=== PATIENT | male | born 1955 | race Caucasian/White ===

== ENCOUNTER → 2021-07-19 | Outpatient (CLI) | payer SELFPAY ==
[2021-07-19 13:02] LABS: Microalbumin, Urine Quant. 6.93 mg/L (0.000-20.000); Protein, Urine Quantitative 11.1 mg/dL (0.0-11.9)
== END ==
LOC: LAB SHORT 10:57
PROVIDERS: Internal Medicine Nephrology
DX: N18.30 Chronic kidney disease, stage 3 unspecified (principal); D63.1 Anemia in chronic kidney disease; N25.81 Secondary hyperparathyroidism of renal origin; E55.9 Vitamin D deficiency, unspecified; E78.00 Pure hypercholesterolemia, unspecified; R76.9 Abnormal immunological finding in serum, unspecified; R94.5 Abnormal results of liver function studies; R94.6 Abnormal results of thyroid function studies; D51.8 Other vitamin B12 deficiency anemias
CPT/HCPCS: 81050; 82043; 82570; 84156

== ENCOUNTER → 2022-11-17 | Outpatient (CLI) | payer MEDICARE | END | disposition home or self-care (01) | LOC: LAB SHORT 09:40 → LAB 09:40 | DX: M1A.09X1 Idiopathic chronic gout, multiple sites, with tophus (tophi) (principal) | CPT/HCPCS: 84550 ==

== ENCOUNTER → 2023-01-26 | Outpatient (CLI) | payer MEDICARE | LOC: LAB SHORT 10:45 → LAB 10:45 | DX: M1A.09X1 Idiopathic chronic gout, multiple sites, with tophus (tophi) (principal) | CPT/HCPCS: 84550 ==

== ENCOUNTER 2023-02-27 10:37 | Emergency (ER) | payer MEDICARE ==
[~2023-02-27] VITALS: Ht 177.8 cm; Wt 108.9 kg
[2023-02-27 11:05] LABS: Calcium, Ionized (POC) 1.07 mmol/L (1.10-1.46); Chloride (POC) 102 mmol/L (98-108); Creatinine (POC) 1.3 mg/dL (0.8-1.3); Glucose (ISTAT POC) 299 mg/dL (70-99); Potassium (POC) 3.7 mmol/L (3.5-5.5); Sodium (POC) 141 mmol/L (135-148); Total CO2 (POC) 26 mmol/L (21-32)
== END 2023-02-27 13:00 ==
LOC: ER 10:37
PROVIDERS: Emergency Medicine
DX: I46.9 Cardiac arrest, cause unspecified (principal)
CPT/HCPCS: 31500; 80047; 85014; 92950; 96374-59; 99285-25; J0171